=== PATIENT | male | born 1965 | race Caucasian/White ===

== ENCOUNTER 2019-08-07 06:20 | Emergency (ER) | payer OTHER ==
--- NOTE | 2019-08-07 06:55 | ED ---
GI/ HPI - HPI Summary HPI Summary: 54-year-old male with significant past medical history of sarcoidosis and kidney stones presents to the emergency department today complaining of left flank pain which began this morning at approximately 0400. He states he woke up at night and felt a 5 out of 10 "stabbing and cramping" pain in his left flank without radiation. Patient has not taken any medication prior to arrival. he denies fever, vomiting, nausea, pain with urination, shortness breath, rash, chest pain, abdominal pain. Family history and surgical history noncontributory. - History of Current Complaint Chief Complaint: EDFlankPain Time Seen by Provider: 08/07/19 06:38 Stated Complaint: KIDNEY STONE PER PT Hx Obtained From: Patient Timing: Constant, Intermittent Severity: Moderate Current Severity: Moderate Pain Intensity: 5 Location of Pain: Flank Pain Characteristics: Sharp, Colicy, Cramping, Aching Associated Signs and Symptoms: Positive: Back Pain, Nausea, Flank Pain. Negative: Vomiting, Fever, Abdominal Pain, UTI Symptoms Aggravating Factor(s): Nothing Alleviating Factor(s): Nothing - Allergy/Home Medications Allergies/Adverse Reactions: Allergies Allergy/AdvReac Type Severity Reaction Status Date / Time amoxicillin Allergy Unknown Verified 08/07/19 06:30 Reaction Details cefepime Allergy Unknown Verified 08/07/19 06:30 Reaction Details clindamycin Allergy Unknown Verified 08/07/19 06:30 Reaction Details enoxaparin Allergy Unknown Verified 08/07/19 06:30 Reaction Details moxifloxacin Allergy Unknown Verified 08/07/19 06:30 Reaction Details sulfamethoxazole Allergy Unknown Verified 08/07/19 06:30 [From Bactrim] Reaction Details trimethoprim [From Bactrim] Allergy Unknown Verified 08/07/19 06:30 Reaction Details vitamin K2 Allergy Unknown Verified 08/07/19 06:30 Reaction Details Home Medications: Home Medications Mometasone 220 MCG MDI * [Asmanex 220 MCG MDI *] 1 puff INH DAILY 08/07/19 [ History Confirmed 08/07/19] Montelukast Sodium TAB* [Singulair TAB*] 10 mg PO BEDTIME 08/07/19 [History Confirmed 08/07/19] PMH/Surg Hx/FS Hx/Imm Hx Cardiovascular History: Reports: Hx Atrial Fibrillation Comment Only: Other Cardiovascular Problems/Disorders - FOLLOWED BY Janak Berg MD, [facility] 2008 AND PRIOR x 2 ABLATIONS Respiratory History: Reports: Hx Asthma - USES INHALER DAILY, HAD A RESUCE INHALER HASN'T USED IN YEARS History: Reports: Hx Kidney Stones - NUMEROUS OVER PAST 20 YRS Musculoskeletal History: Reports: Other Musculoskeletal History - sarcoidosis - Surgical History Surgery Procedure, Year, and Place: 2007...2013 NUMEROUS KIDNEY STONES [facility]. 2008 AND PRIOR x 2 CARDIAC ABLATIONS RT [place] Hx Anesthesia Reactions: No - NAUSEA ONLY Infectious Disease History: No Infectious Disease History: Denies: Traveled Outside the [place] in Last 30 Days - Social History Alcohol Use: Occasionally Substance Use Type: Reports: None Smoking Status (MU): Light Every Day Tobacco Smoker Type: Cigarettes Amount Used/How Often: 1/2 PACK/DAY MAYBE 4 YRS Have You Smoked in the Last Year: No Review of Systems Constitutional: Negative Eyes: Negative ENT: Negative Cardiovascular: Negative Respiratory: Negative Positive: Nausea Positive: flank pain, pain. Negative: burning Musculoskeletal: Negative Skin: Negative Neurological: Negative Psychological: Normal All Other Systems Reviewed And Are Negative: Yes Physical Exam - Summary Physical Exam Summary: Patient appears to be in mild pain distress upon entering the room. Triage Information Reviewed: Yes Vital Signs On Initial Exam: Initial Vitals Temp Pulse Resp BP Pulse Ox 97.5 F 82 16 146/98 97 08/07/19 06:25 08/07/19 06:25 08/07/19 06:25 08/07/19 06:25 08/07/19 06:25 Vital Signs Reviewed: Yes Appearance: Positive: Well-Appearing, No Pain Distress, Well-Nourished Skin: Positive: Warm, Skin Color Reflects Adequate Perfusion Eyes: Positive: EOMI, JOSEMANUEL ENT: Positive: Hearing grossly normal Respiratory/Lung Sounds: Positive: Clear to Auscultation, Breath Sounds Present Cardiovascular: Positive: RRR, S1, S2 Abdomen Description: Positive: Nontender, Soft, CVA Tenderness (L). Negative: CVA Tenderness (R), Distended Bowel Sounds: Positive: Present Musculoskeletal: Positive: Normal, Strength/ROM Intact Neurological: Positive: Sensory/Motor Intact, Alert, Oriented to Person Place, Time, Normal Gait, Speech Normal Psychiatric: Positive: Normal, Affect/Mood Appropriate AVPU Assessment: Alert Procedures - Sedation Patient Received Moderate/Deep Sedation with Procedure: No Diagnostics - Vital Signs Vital Signs Temp Pulse Resp BP Pulse Ox 08/07/19 06:25 97.5 F 82 16 146/98 97 - Laboratory Result Diagrams: 08/07/19 07:04 08/07/19 07:04 Lab Statement: Any lab studies that have been ordered have been reviewed, and results considered in the medical decision making process. GIGU Course/Dx - Course Course Of Treatment: patient was seen and examined. Vital stable patient afebrile. Patient was given IV Toradol and normal saline for presumed kidney stone patient's history and physical. Urinalysis shows 2+ protein 3+ blood, blood work shows no significant abnormalities including leukocytosis or increased renal function. CT of the abdomen and pelvis without contrast was ordered which showed a 6 mm renal calculus in the left UVJ with moderate hydronephrosis. Renal ultrasound shows left hydronephrosis with bilateral ureteral jets. Patient has no evidence of obstruction and can be treated as an outpatient with hopeful passage of the stone. He'll be given a prescription for tamsulosin, ibuprofen, Zofran with a short supply of hydrocodone for breakthrough pain. He is to follow-up with his urologist Dr. Solomon for further evaluation and management. - Diagnoses Differential Diagnoses - Male: Dehydration, Renal Calculi, Renal Colic, Ureteral Calculi, Urinary Tract Infection Provider Diagnoses: Kidney stone on left side Discharge ED - Sign-Out/Discharge Documenting (check all that apply): Patient Departure - Discharge Plan Condition: Stable Disposition: HOME Prescriptions: Hydrocodone/Acetaminophen [Hydrocodone-Acetamin 5-325 mg] 1 each PO Q6HR #3 tablet MDD 3 Ibuprofen TAB* [Motrin TAB* 800 MG] 800 mg PO Q8H PRN #12 tab PRN Reason: Pain - Mild Ondansetron ODT TAB* [Zofran 4 MG Odt TAB*] 4 mg PO Q6H PRN #12 tab.odt PRN Reason: Nausea Tamsulosin CAP* [Flomax CAP*] 0.4 mg PO DAILY #10 cap Patient Education Materials: Kidney Stones (ED) Referrals: Prosper Espinal MD [Primary Care Provider] - Rojas Solomon MD [Medical Doctor] - 3 Days Additional Instructions: You were seen in the emergency department today and diagnosed with a 6 mm stone in your left ureter. The stone may pass on its own. Please follow-up with urology in 3 days for further evaluation and management of your symptoms. I prescribed medications for pain and nausea which can be picked up at your pharmacy. Please return to the emergency department immediately if you develop any new or worsening symptoms such as fever. - Billing Disposition and Condition Condition: STABLE Disposition: Home
[2019-08-07] MEDS: NS 0.9% 1000 ML** 1,000 ML IV ONE ×2 (06:56→08:35)
[2019-08-07] MEDS: Ketorolac INJ* 30 MG/ML 1 ML VIAL IV PUSH ONE (06:56)
--- OUTSIDE RECORDS SUMMARY | 2019-08-07 06:57 | XMS REPORT | Summary of Care ---
:1965 Author Organization [facility] Address [address] [address] Care Team Providers Name Role Phone Prosper Espinal Primary Care Provider Reason for Referral Refer to Department Only (Routine) Status Reason Specialty Diagnoses / Referred By Referred To Procedures Contact Contact Pending GASTROENTEROLOGY / Diagnoses History of colitis Special screening for malignant neoplasm of colon Lenora Dutta Review Gastroenterology Kelsey Arambula NP Gastroenterol [address] [place] [address] [address] [facility] Phone: Road [phone] [place], [place] Fax: [phone] Scheduling Instructions Is the patient on cpap machine?No Is the patient on oxygen?No BP 138/86 | Pulse 66 | Temp 97.5 F (36.4 C) | Ht 5' 10" (1.778 m) | Wt 258 lb (117 kg) | BMI 37.02 kg/m BMI Readings from Last 4 Encounters: 06/12/19 : 37.02 kg/m 05/23/19 : 37.16 kg/m 07/24/18 : 35.87 kg/m 03/08/18 : 35.87 kg/m Controlled Substance Medications: Anticoagulant Medications: Psychiatric/Antianxiety Medications: Antiretroviral Medications: Reason for Visit Reason Comments GI Problem New pt. referred by Dr. Espinal for Hx of colitis, needs GI follow- up. Refer to Department Only (Routine) Status Reason Specialty Diagnoses / Referred By Referred To Procedures Contact Contact Closed Gastroenterology Diagnoses History of colitis Prosper Espinal MD Gastroenterology/ [facility] [place] [address] [address] Phone: [place] [address] Phone: Encounter Details Date Type Department Care Team Description 06/12/2019 Office Visit Lenora Dutta, screening for malignant neoplasm of colon (Primary Dx); Gastroenterology/Hepa Kelsey Arambula NP History of colitis tology [address] [place] [address] [address] [place] [address] [phone] Allergies Active Allergy Reactions Severity Noted Date Comments Amoxicillin Hives 11/12/2007 Moxifloxacin Rash 12/31/2008 Hydrochloride Bactrim Ds Rash 01/14/2009 Cleocin Respiratory Reaction, 12/27/2008 Complaints of Swelling tightness in chest Enoxaparin Rash 11/28/2007 Environmental Respiratory Reaction 08/04/2008 ALLERGY INJ FORMULA # 1 Red top 0.25 Arnol 0.25 Maple 0.25 Birch 0.25 Beech 0.25 Walker 0.25 Michael 0.25 [place] 0.25 Liberty 0.25 Lucien 0.25 Dil : 7.5 # 2 Pigweed 0.25 Lambs kathryn. 0.25 Ragweed 0.25 [place] 0.25 Mugwort 0.25 Plantain 0.25 Cat 0.15 Dog 0.1 Df 0.25 Dp 0.25 Dil: 7.75 Started 1993 Cefepime Hydrochloride Rash, Swelling 12/27/2008 Vitamin K Hives 12/25/2008 Occurred within 30 mins of administration, & was the last medication received, but had also received very recently 4 units of FFP. documented as of this encounter (statuses as of 06/12/2019) Medications Medication Sig Dispensed Refills Start Date End Date Status Levalbuterol Take 3 mL by 360 Ampule 3 05/27/2010 Active INHALATION inhalation EVERY nebulizer SIX HOURS (XOPENEX) 1.25 NEEDED MG/3ML Inhalation (sob/wheeze). Nebu SolnIndications: Asthma aspirin (ECOTRIN) Take 1 Tab by 30 Tab 1 01/17/2011 Active 81 MG Oral Tab mouth DAILY. ECIndications: Atrial fibrillation (HCC) levalbuterol HFA Take 1-2 Puffs 3 Inhaler 3 07/24/2018 Active (XOPENEX) 45 by inhalation MCG/ACT Inhalation EVERY SIX HOURS AerosolIndications NEEDED (sob). : Asthma, well controlled, mild intermittent ramipril (ALTACE) Take 1 Cap by 90 Cap 3 05/26/2019 Active 10 MG Oral Cap mouth DAILY. Mometasone Furoate Take 1 INHL by 3 Inhaler 3 06/09/2019 Active (ASMANEX, 30 inhalation METERED DOSES,) DAILY. 110 MCG/INH Inhalation AEROSOL POWDER, BREATH ACTIVATED mometasone furoate Take 1 Puff by 1 Inhaler 5 05/26/2019 Discontinued (ASMANEX) 220 inhalation TWICE 9 MCG/INH Inhalation DAILY. 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 Rossana Ryan Lpn Atrial fibrillation 11/08/2007 05/23/2019 Overview: S/P UNSUCCESSFUL CARDIOVERSION ON 11/12/07 10/01/08 HISTORY: Mr. Robles is a 43-year-old gentleman brought to the Electrophysiology Laboratory for management of recurrent atrial fibrillation/flutter. He has undergone two cardioversions and was found to be back in atrial fibrillation. His proximal atrial arrhythmias have persisted and hence patient is brought to the Electrophysiology Laboratory for further management. PROCEDURES PERFORMED: (1) Primary comprehensive electrophysiology study with left atrial record; (2) intracardiac mapping; (3) radiofrequency ablation of the right side isthmus and the septum; and (4) stimulation record after infusion of isoproterenol. 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 Stopped 2007. Encounter for allergy testing 10/22/2014 Overview: 1.14.1998 Replaced inactive diagnosis documented as of this encounter (statuses as of 06/12/2019) Immunizations Name Administration Dates Next Due Influenza (IM) W/Pres 05/06/2012, 05/06/2011 Influenza Vaccine (EGG FREE) 05/20/2019 Influenza Vaccine Whole 05/06/2018 PNEUMOCOCCAL POLYSACCHARIDE VACCINE 05/23/2019 Pneumococcal Conjugate Vaccine 08/06/2007 Pneumococcal Conjugate(13 Valent) 10/22/2014 documented as of this encounter Social History Tobacco Use Types Packs/Day Years Used Date Former Smoker Cigarettes 0.5 2 Quit: 08/06/1988 Smokeless Tobacco: Never Used Comments: not sure of date Alcohol Use Drinks/Week oz/Week Comments No 0 Standard drinks or equivalent 0.0 Sex Assigned at Date Recorded Not on file Job Start Date Occupation Industry Not on file Not on file Not on file Travel History Travel Start Travel End No recent travel history available. documented as of this encounter Last Filed Vital Signs Vital Sign Reading Time Taken Comments Blood Pressure 138/86 06/12/2019 8:14 AM EST Pulse 66 06/12/2019 8:14 AM EST Temperature 36.4 06/12/2019 8:14 AM EST C (97.5 F) Respiratory Rate - - Oxygen Saturation - - Inhaled Oxygen Concentration - - Weight 117 kg (258 lb) 06/12/2019 8:14 AM EST Height 177.8 cm (5' 10") 06/12/2019 8:14 AM EST Body Mass Index 37.02 06/12/2019 8:14 AM EST documented in this encounter Patient Instructions Patient InstructionsKelsey Dutta NP - 06/12/2019 8:20 AM EST1. Schedule colonoscopy here in [place] 2. Follow up based on the findings from above Thank you for choosing the [facility] for your needs today! -Kelsey Dutta N.PShanice , Please call if you need to cancel or change your appt. time. Thank you for choosing [facility] for your health care needs, and for consulting with [facility] today. You may receive a survey following this visit, or after an upcoming hospital stay. As easy as it is to feel overloaded with surveys, we are required to send them out randomly and they do provide important feedback so that we may serve your needs in the best way. Please do take the few minutes required to complete the survey if you receive one. We get them too, after seeing the doctor, and they only take a few minutes to complete. documented in this encounter Progress Notes Kelsey Dutta NP - 06/12/2019 8:20 AM EST PATIENT: Selwyn Robles : 1965 DATE OF SERVICE: 06/12/2019 REFERRING PRACTITIONER: Prosper Espinal PRIMARY CARE PROVIDER: Prosper Espinal CHIEF COMPLAINT: Chief Complaint Patient presents with GI Problem New pt. referred by Dr. Espinal for Hx of colitis, needs GI follow-up. Subjective HISTORY OF PRESENT ILLNESS: Selwyn Robles is a 54-y.o. male who presents for a consultation. He reports the need for a screening colonoscopy which is overdue. His last was in 2014 at that time an area of focal active colitis was found and the area tattood. Denies abdominal pain,heartburn, dysphagia, fatigue, nausea, vomiting, melena, hamatemesis, hematochezia, constipation, diarrhea, jaundice, fevers, chills, night sweats, weight loss, easy bruising, chest pain, shortness of breath, dysuria, hematuria, pyuria, joint pains, acholic stools, dark urine or systemic pruritis. He does have history of A fib, ablation in 2016, has been released from cardiology, is on Altace, without recurrence. He also has a history of asthma well controlled on daily Asmanex. Denies CP or SOB. 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 Dilated cardiomyopathy (HCC) mild ENVIRONMENTAL ALLERGIES 1993 Heart disease, unspecified Need for desensitization to allergens 1993 Sarcoidosis 12/26/2004 Unspecified disorder of kidney and ureter Past Surgical History: Procedure Laterality Date ABLATION SUPRAVENTRICULAR TACHY 12/23/08 Radiofrequency ablation of the pulmonary veins ECHO, TRANS ESOPHOGEAL 11/29/2010 Procedure:ECHO, TRANS ESOPHOGEAL; Surgeon:JACQUELINE FISHER; Location:[facility]; Laterality:N/A; SANDY MS CARDIOVERSION ELECTIVE ARRHYTHMIA EXTERNAL 11/12/07 UNSUCCESSFUL X2 MS REPAIR SLIDING INGUINAL HERNIA 1998 x 2 left SS: CARDIOLOGY PRE/POST EPS/ABLATION 10/01/08 RFA OF RIGHT SIDE ISTHMUS AND SEPTUM Family History Problem Relation Age of Onset Heart Father Hypertension Father Diabetes Father Diabetes Mother Current Outpatient Medications Medication Sig aspirin (ECOTRIN) 81 MG Oral Tab EC Take 1 Tab by mouth DAILY. levalbuterol HFA (XOPENEX) 45 MCG/ACT Inhalation Aerosol Take 1-2 Puffs by inhalation EVERY SIX HOURS NEEDED (sob). Levalbuterol INHALATION nebulizer (XOPENEX) 1.25 MG/3ML Inhalation Nebu Soln Take 3 mL by inhalation EVERY SIX HOURS NEEDED (sob/wheeze). Mometasone Furoate (ASMANEX, 30 METERED DOSES,) 110 MCG/INH Inhalation AEROSOL POWDER, BREATHACTIVATED Take 1 INHL by inhalation DAILY. ramipril (ALTACE) 10 MG Oral Cap Take 1 Cap by mouth DAILY. No current facility-administered medications for this visit. Allergies Allergen Reactions Amoxicillin Hives Avelox [Moxifloxacin Hydrochloride] Rash Bactrim Ds Rash Cleocin Respiratory Reaction and Swelling Complaints of tightness in chest Enoxaparin Rash Environmental Respiratory Reaction ALLERGY INJ FORMULA # 1 Red top 0.25 Arnol 0.25 Maple 0.25 Birch 0.25 Beech 0.25 Walker 0.25 Michael 0.25 [place] 0.25 Liberty 0.25 Lucien 0.25 Dil : 7.5 # 2 Pigweed 0.25 Lambs kathryn. 0.25 Ragweed 0.25 [place] 0.25 Mugwort 0.25 Plantain 0.25 Cat 0.15 Dog 0.1 Df 0.25 Dp 0.25 Dil: 7.75 Started 1993 Maxipime [Cefepime Hydrochloride] Rash and Swelling Vitamin K Hives Occurred within 30 mins of administration, & was the last medication received, but had also received very recently 4 units of FFP. Social History Socioeconomic History Marital status: Spouse name: Not on file Number of children: Not on file Years of education: Not on file Highest education level: Not on file Occupational History Not on file Social Needs Financial resource strain: Not on file Food insecurity: Worry: Not on file Inability: Not on file Transportation needs: Medical: Not on file Non-medical: Not on file Tobacco Use Smoking status: Former Smoker Packs/day: 0.50 Years: 2.00 Pack years: 1.00 Types: Cigarettes Last attempt to quit: 08/06/1988 Years since quittin.8 Smokeless tobacco: Never Used Tobacco comment: not sure of date Substance and Sexual Activity Alcohol use: No Alcohol/week: 0.0 standard drinks Drug use: No Sexual activity: Yes Partners: Female Lifestyle Physical activity: Days per week: Not on file Minutes per session: Not on file Stress: Not on file Relationships Social connections: Talks on phone: Not on file Gets together: Not on file Attends hoahaoism service: Not on file Active member of club or organization: Not on file Attends meetings of clubs or organizations: Not on file Relationship status: Not on file Intimate partner violence: Fear of current or ex partner: Not on file Emotionally abused: Not on file Physically abused: Not on file Forced sexual activity: Not on file Other Topics Concern Back Care Not Asked Bike Helmet Not Asked Blood Transfusions Not Asked Caffeine Concern No 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 . Lives in [place] Three kids ages 25, 21, 16 REVIEW OF SYSTEMS: All remaining review of systems was negative except for as noted in the history of present illness/subjective. Objective PHYSICAL EXAMINATION: VITALS: BP 138/86 | Pulse 66 | Temp 97.5 F (36.4 C) | Ht 5' 10" ( 1.778 m) | Wt 258 lb (117 kg) | BMI 37.02 kg/m Body mass index is 37.02 kg/m. GENERAL: alert, oriented, no acute distress. HEENT: No scleral icterus, MMM Psych: Affect normal Neck: no lymphadenopathy LUNGS: clear to auscultation bilaterally. HEART: regular rhythm, no murmurs, no gallops, no rubs. ABDOMEN: general exam: soft, non-tender, non-distended, without masses or organomegaly, normal active bowel sounds, Miller's sign negative. Extrmities: no edema Skin: clear Neuro: gait normal, a&o x 3 RECTAL: exam deferred. IMPRESSION: ICD-9-CM ICD-10-CM 1. Special screening for malignant neoplasm of colon V76.51 Z12.11 COLONOSCOPY REFER TO GI 2. History of colitis V12.79 Z87.19 REFER TO GI COLONOSCOPY REFER TO GI Had Colyte prep last visit due to A fib history which to try different prep this time due to intolerance of the former. Miralax prep advised. Plan PLAN: Patient Instructions 1. Schedule colonoscopy here in [place] 2. Follow up based on the findings from above Thank you for choosing the [facility] for your needs today! -Kelsey Dutta N.P. , Please call if you need to cancel or change your appt. time. Thank you for choosing [facility] for your health care needs, and for consulting with [facility] today. You may receive a survey following this visit, or after an upcoming hospital stay. As easy as it is to feel overloaded with surveys, we are required to send them out randomly and they do provide important feedback so that we may serve your needs in the best way. Please do take the few minutes required to complete the survey if you receive one. We get them too, after seeing the doctor, and they only take a few minutes to complete. Author: Kelsey Dutta NP 06/12/2019 08:50 documented in this encounter Plan of Treatment Date Type Specialty Care Team Description 06/30/2019 Office Visit Internal Medicine Prosper Espinal MD [address] [place] [address] [phone] 07/10/2019 GI Procedure Gastroenterology Nadia Reza MD [address] [place] [address] [phone] 08/08/2019 Appointment Pulmonary 08/08/2019 Office Visit Pulmonary Libia Wang MD [address] [address] [phone] Name Type Priority Associated Diagnoses Order Schedule COLONOSCOPY Diagnostic/Surgical Routine History of colitis Ordered: 06/12/2019 Procedures Special screening for malignant neoplasm of colon Name Type Priority Associated Diagnoses Order Schedule REFER TO GI Referral Routine History of colitis Expected: 06/12/2019, Special screening for Expires: 06/12/2020 malignant neoplasm of colon Health Maintenance Due Date Last Done Comments ZOSTER IMMUNIZATION SERIES 02/01/2014 (1 of 2) COLONOSCOPY SCREENING 11/24/2017 11/24/2014 LIPID DISORDER SCREENING 01/15/2018 01/15/2017, 11/24/2014, 12/28/2008 DIABETES SCREENING 07/26/2019 07/26/2018, 01/15/2017, 10/12/2015, Additional history exists DEPRESSION SCREENING 05/23/2020 05/23/2019 INFLUENZA VACCINE Completed 05/20/2019, 05/06/2018, 05/06/2012, Additional history exists PNEUMOCOCCAL 0-64 YRS Completed 05/23/2019, 10/22/2014, 08/06/2007 HPV IMMUNIZATION SERIES Aged Out No longer eligible based on patient's age to complete this topic MENINGOCOCCAL VACCINE IMM Aged Out No longer eligible based on patient's age to complete this topic documented as of this encounter Results Not on filedocumented in this encounter Visit Diagnoses Diagnosis Special screening for malignant neoplasm of colon - Primary Special screening for malignant neoplasms, colon History of colitis documented in this encounter Insurance Payer Benefit Plan / Subscriber ID Effective Dates Phone Address Type Group [employer]CIAL AETNA xxxxxxxxxx 2006-Present [employer] (Work) [phone] documented as of this encounter Advance Directives Code Status Date Activated Date Inactivated Comments Full Code 12/26/2008 12:43 PM 01/01/2009 7:41 PM
--- OUTSIDE RECORDS SUMMARY | 2019-08-07 06:57 | XMS REPORT | Summary of Care ---
:1965 Author Organization [facility] Address [address] [place] [address] Care Team Providers Name Role Phone Prosper Espinal Primary Care Provider Reason for Visit Reason Comments Sick Patient states yesterday he was at work and felt like he was hit by a truck. He states he has body aches,chills,chest congestion,and cough. Encounter Details Date Type Department Care Team Description 07/22/2019 Office Visit [place] [facility] Prosper Espinal, Influenza ( Primary Dx) Medicine [address] [place] [address] [phone] Allergies Active Allergy Reactions Severity Noted Date Comments Amoxicillin Hives 11/12/2007 Moxifloxacin Rash 12/31/2008 Hydrochloride Bactrim Ds Rash 01/14/2009 Cleocin Respiratory Reaction, 12/27/2008 Complaints of Swelling tightness in chest Enoxaparin Rash 11/28/2007 Environmental Respiratory Reaction 08/04/2008 ALLERGY INJ FORMULA # 1 Red top 0.25 Arnol 0.25 Maple 0.25 Birch 0.25 Beech 0.25 [place] 0.25 Michael 0.25 [place] 0.25 [place] 0.25 Kermit 0.25 Dil : 7.5 # 2 Pigweed 0.25 Lambs kathryn. 0.25 Ragweed 0.25 [employer] 0.25 Mugwort 0.25 Plantain 0.25 Cat 0.15 Dog 0.1 Df 0.25 Dp 0.25 Dil: 7.75 Started 1993 Cefepime Hydrochloride Rash, Swelling 12/27/2008 Vitamin K Hives 12/25/2008 Occurred within 30 mins of administration, & was the last medication received, but had also received very recently 4 units of FFP. documented as of this encounter (statuses as of 07/22/2019) Medications Medication Sig Dispensed Refills Start Date End Date Status Levalbuterol Take 3 mL by 360 Ampule 3 05/27/2010 Active INHALATION inhalation EVERY nebulizer SIX HOURS (XOPENEX) 1.25 NEEDED MG/3ML Inhalation (sob/wheeze). Nebu SolnIndications: Asthma aspirin (ECOTRIN) Take 1 Tab by 30 Tab 1 01/17/2011 Active 81 MG Oral Tab mouth DAILY. ECIndications: Atrial fibrillation (HCC) ramipril (ALTACE) Take 1 Cap by 90 Cap 3 05/26/2019 Active 10 MG Oral Cap mouth DAILY. fluticasone Take 2 Puffs by 1 Inhaler 11 06/13/2019 Active (FLOVENT) 110 inhalation TWICE MCG/ACT Inhalation DAILY. Aerosol levalbuterol HFA Take 1-2 Puffs by 3 Inhaler 3 06/30/2019 Active (XOPENEX) 45 inhalation EVERY MCG/ACT Inhalation SIX HOURS AerosolIndications NEEDED (sob). : Asthma, well controlled, mild intermittent montelukast Take 1 Tab by 90 Tab 3 06/30/2019 Active (SINGULAIR) 10 MG mouth DAILY. Oral Tab ASMANEX, 30 USE 1 INHALATION 3 g 3 07/07/2019 Active METERED DOSES, 110 ORALLY DAILY MCG/INH Inhalation AEROSOL POWDER, BREATH ACTIVATED mesalamine Place 1 30 Suppository 11 07/10/2019 Active (CANASA) 1000 MG Suppository per Rectal Suppos rectum EVERY BEDTIME. budesonide 2 mL by 1920 mL 0 07/18/2019 Active respules Inhalation-SVN (PULMICORT route TWICE RESPULES) 0.25 DAILY. MG/2ML Inhalation Suspension oseltamivir Take 1 Cap by 10 Cap 0 07/22/2019 Active (TAMIFLU) 75 MG mouth TWICE DAILY 9 Oral Cap for 5 days. documented as of this encounter (statuses as of 07/22/2019) Active Problems Problem Noted Date Essential hypertension 05/23/2019 History of colitis 05/23/2019 Nephrolithiasis 10/22/2014 Overview: Urology Dr Solomon [facility] S/p [facility]SW[facility] Moderate persistent asthma 05/06/2012 BMI 34.0-34.9,adult 11/14/2011 Tachycardia-induced cardiomyopathy 09/25/2008 Overview: Replaced inactive diagnosis ENVIRONMENTAL ALLERGIES documented as of this encounter (statuses as of 07/22/2019) Resolved Problems Problem Noted Date Resolved Date Sarcoidosis 06/30/2019 06/30/2019 [facility] (current) use of anticoagulants 09/22/2009 10/19/2009 Overview: UPDATE: 10/18/09 Per [facility]-pt may stop his coumadin at this time-please see her office visit note on 10/05/09. 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 Encounter for allergy testing 10/22/2014 Overview: 1.14.1999 Replaced inactive diagnosis documented as of this encounter (statuses as of 07/22/2019) Immunizations Name Administration Dates Next Due Influenza [...] Sign Reading Time Taken Comments Blood Pressure 132/74 07/22/2019 10:37 AM EST Pulse 96 07/22/2019 10:37 AM EST Temperature 38.9 07/22/2019 10:37 AM C (102.1 EST F) Respiratory Rate - - Oxygen Saturation 96% 07/22/2019 10:37 AM EST Inhaled Oxygen Concentration - - Weight 116.6 kg (257 lb) 07/22/2019 10:37 AM EST Height 177.8 cm (5' 10") 07/22/2019 10:37 AM EST Body Mass Index 36.88 07/22/2019 10:37 AM EST documented in this encounter Patient Instructions Patient InstructionsProsper Espinal MD - 07/22/2019 10:40 AM ESTNo work today or tomorrow Please drink more fluids throughout the day to prevent dehydration. Drink 1 12- 15 ounce glass of water every 2-4 hours while awake. Use tylenol or ibuprofen as needed tamiflu twice daily 5 days Ok to return to work when temp is <100.5 documented in this encounter Progress Notes Prosper Espinal MD - 07/22/2019 10:40 AM EST SUBJECTIVE: Selwyn Robles is a 54-y.o. male who present complaining of flu-like symptoms: fevers, chills, myalgias, congestion, sore throat and cough for 1-2 days. Denies dyspnea or wheezing. OBJECTIVE: Appears moderately ill but not toxic; temperature as noted in vitals. Ears normal. Throat and pharynx normal. Neck supple. No adenopathy in the neck. Sinuses non tender. The chest is clear. ASSESSMENT: Influenza PLAN: tamiflu twice daily No work 48 hours Symptomatic therapy suggested: OTC acetaminophen, ibuprofen and call prn if symptoms persist or worsen. Call or return to clinic prn if these symptoms worsen or fail to improve as anticipated. Patient Instructions No work today or tomorrow Please drink more fluids throughout the day to prevent dehydration. Drink 1 12- 15 ounce glass of water every 2-4 hours while awake. Use tylenol or ibuprofen as needed tamiflu twice daily 5 days Ok to return to work when temp is <100.5 documented in this encounter Plan of Treatment Date Type Specialty Care Team Description 08/08/2019 Appointment Pulmonary 08/08/2019 Office Visit Pulmonary Libia Wang MD [address] [place] [address] Health Maintenance Due Date Last Done Comments DTaP/Tdap/Td Vaccines (1 - 02/01/1975 Tdap) ZOSTER IMMUNIZATION SERIES 02/01/2014 (1 of 2) DEPRESSION SCREENING 05/23/2020 05/23/2019 DIABETES SCREENING 06/30/2020 06/30/2019, 07/26/2018, 01/15/2017, Additional history exists LIPID DISORDER SCREENING 06/30/2020 06/30/2019, 01/15/2017, 11/24/2014, Additional history exists Colonoscopy 07/10/2022 07/10/2019, 11/24/2014 INFLUENZA VACCINE Completed 05/20/2019, 05/06/2018, 05/06/2012, Additional history exists PNEUMOCOCCAL 0-64 YRS Completed 05/23/2019, 10/22/2014, 08/06/2007 HEPATITIS A IMMUNIZATION Aged Out No longer eligible SERIES based on patient's age to complete this topic HPV IMMUNIZATION SERIES Aged Out No longer eligible based on patient's age to complete this topic MENINGOCOCCAL VACCINE IMM Aged Out No longer eligible based on patient's age to complete this topic documented as of this encounter Goals Goal Patient Goal Associated Recent Patient-Stated? Author Type Problems Progress Blood Pressure Blood Pressure 132/74 No Kylie, < 140/90 (07/22/2019 Prosper Alanis, 10:37 AM EST) Note: This is an individualized treatment (blood pressure) goal for Selwyn Robles: Displayed above (on the left) is your goal for blood pressure control. Your most recent blood pressure is also shown above, on the right. You should try to achieve blood pressures that are lower than your goal listed above (on the left). Weight loss vs. 18 mo Lifestyle 3 (07/22/2019 10:37 AM Prosper Doan MD max (lbs) >= 10 EST) Note: This is an individualized lifestyle goal for Selwyn Robles: Your body mass index (BMI) is more than 30. You should lose weight. A reasonable starting goal is to lose 10 pounds. Displayed above is how many pounds you have lost thus far towards your 10 pound weight loss goal. Take all prescribed medications as Self-management Prosper Doan MD directed Note: This is an individualized self-management goal for Selwyn Robles: Please take all prescribed medications as directed. 1. Do not skip doses. If you cannot afford your medications, talk with your doctor. 2. Use a pill reminder system such as a pill box if needed. Your pharmacist can help you with this. 3. Contact your Pharmacy 5 days before your medication runs out. If you cannot take your medications for any reasons, talk with your doctor. 4. Please bring all of your medication bottles and inhalers (or a list of all your medications/inhalers) with you to every visit. Potential barriers to meeting all of your care plan goals will continue to be addressed on an ongoing basis. documented as of this encounter Results Not on filedocumented in this encounter Visit Diagnoses Diagnosis Influenza Influenza with other respiratory manifestations documented in this encounter Insurance Payer Benefit Plan / Subscriber ID Effective Dates Phone Address Type Group AETNA COMMERCIAL AETNA xxxxxxxxxx 2006-Present A[employer] Guarantor Name Account Type Relation to Date of Phone Billing Patient Address Selwyn Robles Personal/Family 1965 [address] (Home) [facility] [phone] [place] (Work) [id number] documented as of this encounter Advance Directives Code Status Date Activated Date Inactivated Comments Full Code 12/26/2008 12:43 PM 01/01/2009 7:41 PM
--- OUTSIDE RECORDS SUMMARY | 2019-08-07 06:57 | XMS REPORT | Summary of Care ---
:1965 Author Organization [facility] Address [address] [place] [address] Care Team Providers Name Role Phone Prosper Espinal Primary Care Provider Reason for Visit Reason Comments Physical Patient here for routine physical. He is fasting. Encounter Details Date Type Department Care Team Description 06/30/2019 Office Visit [place] [facility] Prosper Espinal, Routine general medical examination at a health care facility (Primary Dx); Medicine Essential hypertension; [address] Moderate persistent asthma without complication; [place], [place] [id number] [place] [id number] Asthma, well controlled, mild intermittent; [phone] Pigmented skin lesion Allergies Active Allergy Reactions Severity Noted Date Comments Amoxicillin Hives 11/12/2007 Moxifloxacin Rash 12/31/2008 Hydrochloride Bactrim Ds Rash 01/14/2009 Cleocin Respiratory Reaction, 12/27/2008 Complaints of Swelling tightness in chest Enoxaparin Rash 11/28/2007 Environmental Respiratory Reaction 08/04/2008 ALLERGY INJ FORMULA # 1 Red top 0.25 Arnol 0.25 Maple 0.25 Birch 0.25 Beech 0.25 [place] 0.25 Michael 0.25 [place] 0.25 [place] 0.25 [place] 0.25 Dil : 7.5 # 2 Pigweed 0.25 Lambs kathryn. 0.25 Ragweed 0.25 [place] 0.25 Mugwort 0.25 Plantain 0.25 Cat 0.15 Dog 0.1 Df 0.25 Dp 0.25 Dil: 7.75 Started 1993 Cefepime Hydrochloride Rash, Swelling 12/27/2008 Vitamin K Hives 12/25/2008 Occurred within 30 mins of administration, & was the last medication received, but had also received very recently 4 units of FFP. documented as of this encounter (statuses as of 06/30/2019) Medications Medication Sig Dispensed Refills Start Date [...] Active 10 MG Oral Cap mouth DAILY. mometasone furoate Take 2 Puffs by 1 Inhaler 3 06/13/2019 Active (ASMANEX HFA) 100 inhalation TWICE MCG/ACT Inhalation DAILY. Aerosol fluticasone Take 2 Puffs by 1 Inhaler 11 06/13/2019 Active (FLOVENT) 110 inhalation TWICE MCG/ACT Inhalation DAILY. Aerosol levalbuterol HFA Take 1-2 Puffs 3 Inhaler 3 06/30/2019 Active (XOPENEX) 45 by inhalation MCG/ACT Inhalation EVERY SIX HOURS AerosolIndications NEEDED (sob). : Asthma, well controlled, mild intermittent montelukast Take 1 Tab by 30 Tab 5 06/30/2019 Active (SINGULAIR) 10 MG mouth DAILY. Oral Tab levalbuterol HFA Take 1-2 Puffs 3 Inhaler 3 07/24/2018 Discontinued (XOPENEX) 45 by inhalation 9 MCG/ACT Inhalation EVERY SIX HOURS AerosolIndications NEEDED (sob). : Asthma, well controlled, mild intermittent documented as of this encounter (statuses as of 06/30/2019) Active Problems Problem Noted Date Essential hypertension 05/23/2019 History of colitis 05/23/2019 Nephrolithiasis 10/22/2014 Overview: Urology Dr Solomon [facility] S/p ESWL [facility] Moderate persistent asthma 05/06/2012 BMI 34.0-34.9,adult 11/14/2011 Tachycardia-induced cardiomyopathy 09/25/2008 Overview: Replaced inactive diagnosis ENVIRONMENTAL ALLERGIES documented as of this encounter (statuses as of 06/30/2019) Resolved Problems Problem Noted Date Resolved Date Sarcoidosis 06/30/2019 06/30/2019 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 Rossana Shelby Mantilla Sarcoidosis 12/17/2008 06/30/2019 Overview: S/P REMOVAL OF [...] as of this encounter (statuses as of 06/30/2019) Immunizations Name Administration Dates Next Due Influenza [...] Sign Reading Time Taken Comments Blood Pressure 124/82 06/30/2019 7:58 AM EST Pulse 68 06/30/2019 7:58 AM EST Temperature - - Respiratory Rate - - Oxygen Saturation - - Inhaled Oxygen Concentration - - Weight 117.9 kg (260 lb) 06/30/2019 7:58 AM EST Height 177.8 cm (5' 10") 06/30/2019 7:58 AM EST Body Mass Index 37.31 06/30/2019 7:58 AM EST documented in this encounter Patient Instructions Patient InstructionsProsper Espinal MD - 06/30/2019 8:00 AM ESTRefill on asthma medication Return to office for punch biopsy left upper chest Goal weight is initally 235 pounds In order to lose weight you must: 1. exercise 30-40 minutes 5-7 times weekly (you need to get winded and sweaty during this exercise). 2. follow a calorie restricted diet (portion size and total calorie count is most important). 3. Weigh yourself daily and write it down. It is important to make lasting, small changes which you can maintain buttermaker. Discipline and habit are very important, and hard to change. Generally, healthy weight loss is 1-2 pounds off per week. Blood work today documented in this encounter Progress Notes Prosper Espinal MD - 06/30/2019 8:00 AM EST SUBJECTIVE: Selwyn Robles is a 54-y.o. male for presenting for his annual checkup. Patient Active Problem List Diagnosis Tachycardia-induced cardiomyopathy (HCC) ENVIRONMENTAL ALLERGIES BMI 34.0-34.9,adult Moderate persistent asthma Nephrolithiasis Essential hypertension History of colitis Current Outpatient Medications Medication Sig aspirin (ECOTRIN) 81 MG Oral Tab EC Take 1 Tab by mouth DAILY. fluticasone (FLOVENT) 110 MCG/ACT Inhalation Aerosol Take 2 Puffs by inhalation TWICE DAILY. levalbuterol HFA (XOPENEX) 45 MCG/ACT Inhalation Aerosol Take 1-2 Puffs by inhalation EVERY SIX HOURS NEEDED (sob). Levalbuterol INHALATION nebulizer (XOPENEX) 1.25 MG/3ML Inhalation Nebu Soln Take 3 mL by inhalation EVERY SIX HOURS NEEDED (sob/wheeze). mometasone furoate (ASMANEX HFA) 100 MCG/ACT Inhalation Aerosol Take 2 Puffs by inhalation TWICE DAILY. montelukast (SINGULAIR) 10 MG Oral Tab Take 1 Tab by mouth DAILY. ramipril (ALTACE) 10 MG Oral Cap Take 1 Cap by mouth DAILY. No current facility-administered medications for this visit. Allergies: Amoxicillin; Avelox [moxifloxacin hydrochloride]; Bactrim ds; Cleocin ; Enoxaparin; Environmental; Maxipime [cefepime hydrochloride]; and Vitamin k ROS: Feeling well. No dyspnea or chest pain on exertion. No abdominal pain, change in bowel habits,black or bloody stools. No urinary tract or prostatic symptoms. No neurological complaints. No asthma symptoms OBJECTIVE: The patient appears well, alert, oriented x 3, in no distress. BP 124/82 | Pulse 68 | Ht 5' 10" (1.778 m) | Wt 260 lb (117.9 kg) | BMI 37.31 kg/m ENT normal. Neck supple. No adenopathy or thyromegaly. ERMA. Lungs are clear, good air entry, no wheezes, rhonchi or rales. S1 and S2 normal, no murmurs, regular rate and rhythm. Abdomen is soft without tenderness, guarding, mass or organomegaly. exam: no penile lesions or discharge, no testicular masses or tenderness, no hernias. Rectal and prostate exam: deferred, not clinically indicated. Extremities show no edema, normal peripheral pulses. Neurological is normal without focal findings. Skin irregular brown black asymmetric lesion left upper chest 6-8 mm diameter rest of skin exam negative ICD-9-CM ICD-10-CM 1. Routine general medical examination at a [facility] facility V70.0 Z00.00 PSA, TOTAL (FOLLOW-UP DIAGNOSTIC) COMPREHENSIVE METABOLIC PANEL LIPID PROFILE 2. Essential hypertension at goal continue current medications 401.9 I10 3. Moderate persistent asthma without complication continue current medications inhaled corticosteroids 493.90 J45.40 5. Pigmented skin lesion left upper chest return to office punch biopsy 709.00 L81.9 Patient Instructions Refill on asthma medication Return to office for punch biopsy left upper chest Goal weight is initally 235 pounds In order to lose weight you must: 1. exercise 30-40 minutes 5-7 times weekly (you need to get winded and sweaty during this exercise). 2. follow a calorie restricted diet (portion size and total calorie count is most important). 3. Weigh yourself daily and write it down. It is important to make lasting, small changes which you can maintain snf. Discipline and habit are very important, and hard to change. Generally, healthy weight loss is 1-2 pounds off per week. Blood work today documented in this encounter Plan of Treatment Date Type Specialty Care Team Description 07/10/2019 GI Procedure Gastroenterology Nadia Reza MD [address] [place] [address] [phone] 07/22/2019 Office Visit Internal Medicine Prosper Espinal MD [address] [place] [address] [phone] 08/08/2019 Appointment Pulmonary 08/08/2019 Office Visit Pulmonary Libia Wang MD [address] [address] Name Type Priority Associated Diagnoses Date/Time PSA, TOTAL (FOLLOW-UP Lab Routine Routine general medical 06/30/2019 8:25 AM DIAGNOSTIC) examination at a [facility] facility COMPREHENSIVE METABOLIC Lab Routine Routine general medical 06/30/2019 8: 25 AM PANEL examination at a [facility] facility LIPID PROFILE Lab Routine Routine general medical 06/30/2019 8:25 AM examination at a [facility] facility Health Maintenance Due Date Last Done Comments ZOSTER IMMUNIZATION SERIES 02/01/2014 (1 of 2) Colonoscopy 11/24/2017 11/24/2014 LIPID DISORDER SCREENING 01/15/2018 01/15/2017, [...] Type Problems Progress Blood Pressure Blood Pressure 124/82 No Kylie, < 140/90 (06/30/2019 Prosper Alanis, 7:58 AM EST) Note: This is an individualized treatment (blood pressure) goal for Selwyn Robles: Displayed above (on the left) is your goal for blood pressure control. Your most recent blood pressure is also shown above, on the right. You should try to achieve blood pressures that are lower than your goal listed above (on the left). Weight loss vs. 18 mo Lifestyle 0 (06/30/2019 7:58 AM Prosper Daon MD max (lbs) >= 10 EST) Note: [...] filedocumented in this encounter Visit Diagnoses Diagnosis Routine general medical examination at a health care facility - Primary Essential hypertension Unspecified essential hypertension Moderate persistent asthma without complication Unspecified asthma Asthma, well controlled, mild intermittent Pigmented skin lesion Dyschromia, unspecified documented in this encounter Insurance Payer Benefit Plan / Subscriber ID Effective Dates Phone Address Type Group A[employer]NA COMMERCIAL AETNA xxxxxxxxxx 2006-Present A[employer]na Guarantor Name Account Type Relation to Date of Phone Billing Patient Address Selwyn Robles Personal/Family 1965 [address] (Home) [facility] [phone] [place], [place] (Work) [id number] documented as of this encounter Advance Directives Code Status Date Activated Date Inactivated Comments Full Code 12/26/2008 12:43 PM 01/01/2009 7:41 PM
[2019-08-07 07:11] LABS: ABS Eosinophils 0.3 10^3/ul (0-0.6); ABS Lymphocytes 1.3 10^3/ul (1.0-4.8); ABS Monocytes 0.4 10^3/ul (0-0.8); ABS Neutrophils 4.2 10^3/ul (1.5-7.7); Eosinophil % 4.2 %; Hematocrit 40 % (42-52); Hemoglobin 13.9 g/dL (14.0-18.0); Lymphocyte % 20.1 %; Mean Corpuscular HGB Conc 35 g/dL (31-36); Mean Corpuscular Hemoglobin 32 pg (27-31); Mean Corpuscular Volume 94 fL (80-94); Mean Platelet Volume 6.5 fL (7.4-10.4); Platelet Count 235 10^3/uL (150-450); Red Blood Count 4.28 10^6 /uL (4.18-5.48); Red Cell Distribution Width 13 % (10-15); White Blood Count 6.2 10^3/uL (3.5-10.8)
[2019-08-07 07:28] LABS: Albumin/Globulin Ratio 1.5 (1-3); BUN/Creatinine Ratio 25.3 (8-20); Calcium 8.9 mg/dL (8.6-10.3); EGFR African American 123.2 (>60); EGFR Non-African American 101.8 (>60); Globulin 2.7 g/dL (2-4); Potassium 4.1 mmol/L (3.5-5.0); Total Bilirubin 0.7 mg/dL (0.2-1.0); Total Protein 6.7 g/dL (6.4-8.9)
[2019-08-07 08:43] LABS: Urine Appearance Cloudy; Urine Bilirubin Negative (Negative); Urine Blood 3+ (Negative); Urine Color Yellow; Urine Glucose Negative (Negative); Urine Ketones Negative (Negative); Urine Nitrite Negative (Negative); Urine Protein 2+(100 mg/dL) (Negative); Urine Urobilinogen Negative (Negative)
[2019-08-07 08:45] LABS: Urine Bacteria Absent (Absent); Urine Red Blood Cell 3+(>10/hpf) (Absent); Urine White Blood Cell Absent (Absent)
[2019-08-07 10:23] VITALS: BP 143/101
== END 2019-08-07 10:23 | disposition home or self-care (01) ==
LOC: ED 06:20
DX: N13.2 Hydronephrosis with renal and ureteral calculous obstruction (principal); I48.91 Unspecified atrial fibrillation; J45.909 Unspecified asthma, uncomplicated; F17.210 Nicotine dependence, cigarettes, uncomplicated; Z79.899 Other long term (current) drug therapy; Z88.0 Allergy status to penicillin; Z88.1 Allergy status to other antibiotic agents; Z88.2 Allergy status to sulfonamides
CPT/HCPCS: 36415; 74176; 76775; 80053; 81003; 81015; 85025; 96361; 96374; 99282; J1885

== ENCOUNTER → 2019-08-25 07:43 | Day surgery (SDC) | payer OTHER ==
--- NOTE | 2019-08-21 18:51 | HP ---
CC: Yumi Reese NP, at [facility]; Rojas Solomon MD * ADMITTING HISTORY AND PHYSICAL: DATE OF ADMISSION: 08/25/19 ADMITTING DIAGNOSIS: Left renal calculus. PLANNED PROCEDURE: Shockwave lithotripsy of left renal calculus. SURGEON: Dr. Solomon. HISTORY OF PRESENT ILLNESS: Selwyn Robles is a 54-year-old gentleman with a history of recurrent bilateral renal calculi. He recently had an episodic left flank pain secondary to a 6- to 7-mm calculus, which seemed to be moving between the left ureteropelvic junction and left kidney. He is now being brought in for shockwave lithotripsy of left renal calculus. PAST MEDICAL HISTORY: Significant for: 1. Recurrent renal calculi. 2. Atrial fibrillation. 3. Asthma. 4. History of tachycardia induced cardiomyopathy. 5. Sarcoidosis. PAST SURGICAL HISTORY: Significant for multiple procedures for cardiac radiofrequency ablation, repair of inguinal hernia, multiple procedures for ureteroscopy and stent insertion. MEDICATIONS ON ADMISSION: 1. Xopenex 1 to 2 puffs by inhalation every 6 hours. 2. Asmanex 1 by inhalation daily. 3. Singulair 10 mg at bedtime. 4. Ramipril 10 mg daily. 5. Aspirin 81 mg daily, which is currently on hold. ALLERGIES: AMOXICILLIN. SOCIAL HISTORY: Smoking history: He is a former smoker, who quit about 30 years ago with a 1- to 2-pack-year smoking history. PHYSICAL EXAMINATION GENERAL: Reveals a pleasant, healthy appearing gentleman. VITAL SIGNS: Blood pressure is 148/90, pulse 108 per minute, temperature 98, oxygen saturation 98% on room air. LUNGS: Clear bilaterally. CARDIOVASCULAR: Regular rate and rhythm. S1, S2. ABDOMEN: Soft without masses, has mild left flank tenderness. IMPRESSION: A 54-year-old gentleman with episodic left flank pain secondary to a calculus moving between the left ureteropelvic junction and left kidney. PLAN/RECOMMENDATIONS: Planned procedure is shockwave lithotripsy of left renal calculus. [id number]/[facility] #: [id number] [facility]
[~2019-08-25 07:43] MED LIST: Buffered Lidocaine 1% SYRIN* 1 ML/SYRINGE INTRADERM ONE; HYDROmorphone INJ1* 1 MG/ML SYRINGE IV PRN; Lactated Ringers 1000 ML Bag* 1,000 ML IV SCH; Levofloxacin 500 MG IVPREMIX(* 500 MG/100 ML BAG IVPB ONE; Lidocaine 2% PF * 5 ML VIAL ONE; Midazolam* 1 MG/ML 2 ML VIAL (2 MG) ONE; Naloxone* 0.4 MG/ML 1 ML VIAL IV PRN; Ondansetron INJ* 2 MG/ML VIAL ONE; PROCHLORPERAZINE INJ 5 MG/ML 2 ML VIAL IV PRN; Propofol* 10 MG/ML 20 ML BTL ONE; fentaNYL* 50 MCG/ML 2 ML VIAL (100 MCG VIAL) ONE
[2019-08-25 14:07] VITALS: BP 138/68
--- NOTE | 2019-08-26 01:14 | OP ---
CC: Dr. Prosper Espinal * DATE OF OPERATION: 08/25/19 - [facility] DATE OF : 63 SURGEON: Rojas Solomon MD ANESTHESIOLOGIST: Dr. Clarke. ANESTHESIA: General. PRE-OP DIAGNOSIS: Left renal calculus. POST-OP DIAGNOSIS: Left renal calculus. OPERATIVE PROCEDURE: Shockwave lithotripsy of left renal calculus. COMPLICATIONS: None. POSTOPERATIVE CONDITION: Stable. INDICATIONS: Selwyn Robles is a 54-year-old gentleman with a history of recurrent renal calculi. He was recently evaluated and noted to have a 6 to 7 mm calculus, which appears to have been moving between the area of the ureteropelvic junction in the lower pole. DESCRIPTION OF PROCEDURE: After induction of general anesthesia, the patient was placed on the lithotripsy table in supine position. The calculus which was now in the lower pole was identified using fluoroscopy. Shockwave lithotripsy was commenced at a rate of 60 shocks per minute. After the initial 300 shocks, there was a pause in lithotripsy for several minutes in an effort to minimize any potential trauma to the kidney. Lithotripsy was then resumed and periodic imaging revealed good localization and fragmentation. A total of 1400 shocks were administered. The patient tolerated the procedure satisfactorily and was transferred back to the recovery area in stable condition. [id number]/[facility] #: [id number] MTDD
== END | disposition home or self-care (01) ==
LOC: OR 07:43
PROVIDERS: ATTEND Urology
DX: N20.0 Calculus of kidney (principal); Z87.442 Personal history of urinary calculi; I48.91 Unspecified atrial fibrillation; J45.909 Unspecified asthma, uncomplicated; I42.8 Other cardiomyopathies; D86.9 Sarcoidosis, unspecified; Z87.891 Personal history of nicotine dependence
CPT/HCPCS: 74018; J1956; J2250; J2405; J2704; J3010